=== PATIENT | female | born 1970 | race Caucasian/White ===

== ENCOUNTER 2017-07-19 15:15 | Outpatient (RCR) | payer BC ==
[~2017-07-19 15:15] MED LIST: BUSPAR10 MG PO; RITALIN10 MG PO; XANAX 0.5MG0.5 MG PO
== END 2017-07-20 15:43 ==
LOC: WSPT 15:15
DX: M54.41 Lumbago with sciatica, right side (principal); M54.42 Lumbago with sciatica, left side

== ENCOUNTER 2018-02-06 09:30 | Outpatient (RCR) | payer BC | END 2018-02-09 08:09 | disposition home or self-care (01) | LOC: WSPT 09:30 | DX: M43.16 Spondylolisthesis, lumbar region (principal); M54.42 Lumbago with sciatica, left side; Z98.1 Arthrodesis status; Z87.891 Personal history of nicotine dependence ==

== ENCOUNTER 2020-06-17 14:31 | Outpatient (RCR) | payer BC | END 2020-09-15 | disposition home or self-care (01) | LOC: WSST | DX: R49.9 Unspecified voice and resonance disorder (principal) ==